=== PATIENT | female | born 1935 | race Caucasian/White ===

== ENCOUNTER 2018-12-27 11:10 | Inpatient (IN) | payer MEDICARE ==
[2018-12-27 11:48] VITALS: BMI 24.2
[2018-12-27] MEDS ORDERED: HYDROcodone/Acetaminophen 5/325 mg Tablet PO PRN (13:22)
[2018-12-27] MEDS ORDERED: cloNIDine 0.1 MG TAB PO PRN (13:22)
[2018-12-27] MEDS ORDERED: Senokot S 8.6-50 MG TAB PO PRN (13:22)
[2018-12-27] MEDS ORDERED: Bisacodyl 5 MG TAB PO PRN (13:22)
[2018-12-27] MEDS ORDERED: Zolpidem Tartrate 5 MG TAB PO PRN (13:22)
[2018-12-27] MEDS ORDERED: Acetaminophen 325 MG TAB PO PRN (13:22)
[2018-12-27] MEDS ORDERED: Ondansetron ODT 4 MG TAB PO PRN (13:22)
[2018-12-27] MEDS ORDERED: Ibuprofen 200 MG TAB PO PRN (13:22)
[2018-12-27] MEDS ORDERED: HYDROcodone/Acetaminophen 10/325 mg Tablet PO PRN (13:22)
[2018-12-27] MEDS ORDERED: Morphine 2 MG/ML SYRINGE SLOW IVP PRN (14:00)
[2018-12-27 14:01] LABS: #Basophils 0.1 thou/uL (0.0-0.2); #Eosinphils 0.2 thou/uL (0.0-0.7); #Lymphocytes 2.2 thou/uL (1.20-3.40); #Monocytes 0.5 thou/uL (0.11-0.59); #Neutrophils 7.2 thou/uL (1.40-6.50); %Basophils 1.2 % (0.0-1.0); %Lymphocytes 21.7 % (21.0-51.0); %Monocytes 4.5 % (0.0-10.0); %Neutrophils 70.6 % (42.0-75.0); Hemoglobin 12.6 g/dL (12.0-16.0); Mean Corpuscular HGB CONC 31.6 g/dL (32.0-36.0); Mean Corpuscular Hemoglobin 27.8 pg (27.0-31.0); Mean Platelet Volume 8.3 fL (7.4-10.4); Platelet Count 372 thou/uL (130-400); RBC Distribution Width 13.5 % (11.5-14.5); Red Blood Cell (RBC) Count 4.53 mill/uL (4.20-5.40); White Blood Cell (WBC) Count 10.1 thou/uL (4.8-10.8)
[2018-12-27 14:15] LABS: ALT (SGPT) 11 U/L (8-55); AST (SGOT) 17 U/L (5-34); Albumin 4.4 g/dL (3.4-4.8); Alkaline Phosphatase 113 U/L (40-110); Anion Gap 15 mmol/L (10-20); BUN (Urea Nitrogen) 18 mg/dL (9.8-20.1); Bilirubin, Total 0.5 mg/dL (0.2-1.2); Calc. Creatinine Clearance 47 mL/min (70-130); Calcium 9.8 mg/dL (7.8-10.44); Carbon Dioxide 26 mmol/L (23-31); Chloride 104 mmol/L (98-107); Estimated GFR-MDRD 57; Globulin 3.3 g/dL (2.4-3.5); Glucose 143 mg/dL (83-110); Potassium 3.8 mmol/L (3.5-5.1); Protein, Total 7.7 g/dL (6.0-8.3); Sodium 141 mmol/L (136-145)
[2018-12-27] MEDS ORDERED: Nebivolol HCl 5 MG TAB PO SCH (15:30)
[2018-12-27] MEDS: Vancomycin HCl 1 GM in Sodium Chloride 0.9% 250 ML 300 ML IVPB SCH (15:34)
[2018-12-27] MEDS: Famotidine 20 MG TAB PO SCH (20:59)
[2018-12-28 05:34] LABS: #Basophils 0.2 thou/uL (0.0-0.2); #Eosinphils 0.3 thou/uL (0.0-0.7); #Lymphocytes 2.5 thou/uL (1.20-3.40); #Monocytes 0.7 thou/uL (0.11-0.59); #Neutrophils 4.4 thou/uL (1.40-6.50); %Basophils 2.1 % (0.0-1.0); %Eosinophils 3.8 % (0.0-10.0); %Lymphocytes 30.6 % (21.0-51.0); %Monocytes 8.8 % (0.0-10.0); %Neutrophils 54.7 % (42.0-75.0); Mean Corpuscular HGB CONC 32.8 g/dL (32.0-36.0); Mean Corpuscular Hemoglobin 28.2 pg (27.0-31.0); Mean Corpuscular Volume 86.1 fL (78.0-98.0); Mean Platelet Volume 7.9 fL (7.4-10.4); Platelet Count 300 thou/uL (130-400); RBC Distribution Width 13.2 % (11.5-14.5); Red Blood Cell (RBC) Count 4.24 mill/uL (4.20-5.40)
[2018-12-28 05:43] LABS: Anion Gap 12 mmol/L (10-20); BUN (Urea Nitrogen) 16 mg/dL (9.8-20.1); Calc. Creatinine Clearance 57 mL/min (70-130); Calcium 9.1 mg/dL (7.8-10.44); Carbon Dioxide 26 mmol/L (23-31); Chloride 106 mmol/L (98-107); Estimated GFR-MDRD 72; Glucose 90 mg/dL (83-110); Potassium 4.2 mmol/L (3.5-5.1); Sodium 140 mmol/L (136-145)
[2018-12-28] MEDS: Famotidine 20 MG TAB PO SCH ×2 (08:45→20:19)
[2018-12-28] MEDS: Polyethylene Glycol OPTH DROP 15 ML BOT EA EYE SCH (08:46)
[2018-12-28] MEDS ORDERED: Nebivolol HCl 5 MG TAB PO SCH (09:00)
[2018-12-28] MEDS: Vancomycin HCl 1 GM in Sodium Chloride 0.9% 250 ML 300 ML IVPB SCH (15:25)
[2018-12-28] MEDS: Nebivolol HCl 5 MG TAB PO SCH (17:26)
[2018-12-29] MEDS: Famotidine 20 MG TAB PO SCH ×2 (09:29→19:51)
[2018-12-29] MEDS: Polyethylene Glycol OPTH DROP 15 ML BOT EA EYE SCH (09:30)
[2018-12-29 14:44] LABS: Vancomycin, Trough 7.5 ug/mL
[2018-12-29] MEDS ORDERED: Vancomycin HCl 750 MG in Sodium Chloride 0.9% 250 ML 250 ML IVPB SCH (15:00)
[2018-12-29] MEDS: Nebivolol HCl 5 MG TAB PO SCH (17:17)
[2018-12-30 06:19] VITALS: BP 142/78; TEMP 98.3
[2018-12-30] MEDS ORDERED: Lidocaine 1% PF 5 ML VIAL ONE (08:17)
[2018-12-30] MEDS: Famotidine 20 MG TAB PO SCH (08:26)
[2018-12-30] MEDS: Polyethylene Glycol OPTH DROP 15 ML BOT EA EYE SCH (08:26)
[2018-12-30] MEDS ORDERED: Morphine 2 MG/ML SYRINGE ONE ×2 (10:47→13:11)
[2018-12-30] MEDS ORDERED: Morphine 2 MG/ML SYRINGE SLOW IVP SCH (13:00)
[2018-12-30] MEDS ORDERED: Cephalexin 250 MG CAP PO SCH (14:00)
[2018-12-30] MEDS ORDERED: Vancomycin HCl 750 MG in Sodium Chloride 0.9% 250 ML 250 ML IVPB SCH (15:00)
[2018-12-31] MEDS ORDERED: Amlodipine 5 MG TAB PO SCH (09:00)
== END 2018-12-30 15:31 | disposition swing bed (61) | DRG 746 ==
LOC: BURMED 11:10
PROVIDERS: ADMIT Family Medicine; ATTEND Family Medicine
PROC: 0U9GXZZ Drainage of Vagina, External Approach (ICD-10-PCS; principal; 2018-12-27)
DX: N76.4 Abscess of vulva (principal); L03.818 Cellulitis of other sites; N75.0 Cyst of Bartholin's gland; I10 Essential (primary) hypertension; H81.03 Meniere's disease, bilateral; H91.8X3 Other specified hearing loss, bilateral; N76.2 Acute vulvitis; M85.80 Other specified disorders of bone density and structure, unspecified site; Z90.710 Acquired absence of both cervix and uterus
CPT/HCPCS: 36415; 80048; 80053; 80202; 85025; 87040; 97602; J2001; J2270; J3370; J7050

== ENCOUNTER 2018-12-30 15:45 | Inpatient (IN) | payer MEDICARE ==
[2018-12-30] MEDS ORDERED: Senokot S 8.6-50 MG TAB PO PRN (16:37)
[2018-12-30] MEDS ORDERED: Zolpidem Tartrate 5 MG TAB PO PRN (16:38)
[2018-12-30] MEDS ORDERED: cloNIDine 0.1 MG TAB PO PRN (16:39)
[2018-12-30] MEDS ORDERED: Ibuprofen 200 MG TAB PO PRN (16:40)
[2018-12-30] MEDS ORDERED: Morphine 2 MG/ML SYRINGE SLOW IVP PRN (16:41)
[2018-12-30] MEDS ORDERED: Ondansetron ODT 4 MG TAB PO PRN (16:41)
[2018-12-30] MEDS: Nebivolol HCl 5 MG TAB PO SCH (17:41)
[2018-12-30] MEDS: Cephalexin 250 MG CAP PO SCH (21:06)
[2018-12-30] MEDS: Famotidine 20 MG TAB PO SCH (21:07)
[2018-12-31] MEDS: Cephalexin 250 MG CAP PO SCH ×3 (05:48→21:45)
[2018-12-31] MEDS: Amlodipine 5 MG TAB PO SCH (09:02)
[2018-12-31] MEDS: Polyethylene Glycol OPTH DROP 15 ML BOT EA EYE SCH (09:03)
[2018-12-31] MEDS: Famotidine 20 MG TAB PO SCH ×2 (09:03→21:45)
[2018-12-31] MEDS: Nebivolol HCl 5 MG TAB PO SCH (17:30)
[2018-12-31] MEDS ORDERED: Famotidine 20 MG TAB ONE (20:33)
[2019-01-01] MEDS: Cephalexin 250 MG CAP PO SCH ×3 (06:27→21:22)
[2019-01-01] MEDS: Polyethylene Glycol OPTH DROP 15 ML BOT EA EYE SCH (08:12)
[2019-01-01] MEDS: Amlodipine 5 MG TAB PO SCH (08:12)
[2019-01-01] MEDS: Famotidine 20 MG TAB PO SCH ×2 (08:13→21:22)
[2019-01-01 12:43] VITALS: BMI 24.4
[2019-01-01] MEDS: Nebivolol HCl 5 MG TAB PO SCH (17:52)
[2019-01-02] MEDS: Cephalexin 250 MG CAP PO SCH ×3 (05:23→21:26)
[2019-01-02] MEDS: Polyethylene Glycol OPTH DROP 15 ML BOT EA EYE SCH (08:21)
[2019-01-02] MEDS: Famotidine 20 MG TAB PO SCH ×2 (08:21→21:26)
[2019-01-02] MEDS: Amlodipine 5 MG TAB PO SCH (08:21)
[2019-01-02] MEDS: Nebivolol HCl 5 MG TAB PO SCH (16:38)
[2019-01-03] MEDS: Cephalexin 250 MG CAP PO SCH ×3 (05:50→21:04)
[2019-01-03] MEDS: Amlodipine 5 MG TAB PO SCH (09:02)
[2019-01-03] MEDS: Polyethylene Glycol OPTH DROP 15 ML BOT EA EYE SCH (09:05)
[2019-01-03] MEDS: Famotidine 20 MG TAB PO SCH ×2 (09:05→21:04)
[2019-01-03] MEDS: Nebivolol HCl 5 MG TAB PO SCH (17:08)
[2019-01-04] MEDS: Cephalexin 250 MG CAP PO SCH ×2 (05:43→14:01)
[2019-01-04 06:12] VITALS: BP 155/65; TEMP 98.1
[2019-01-04] MEDS: Polyethylene Glycol OPTH DROP 15 ML BOT EA EYE SCH (09:00)
[2019-01-04] MEDS: Famotidine 20 MG TAB PO SCH (09:01)
[2019-01-04] MEDS: Amlodipine 5 MG TAB PO SCH (09:01)
--- NOTE | 2019-01-04 21:49 | DIS ---
DATE OF ADMISSION: 12/27/2018 DATE OF TRANSFER TO [facility]: 12/30/2018 DATE OF DISCHARGE: 01/04/2019 ADMISSION DIAGNOSES: 1. Vulvar abscess. 2. Cellulitis of perineum. 3. Hypertension. 4. Comorbid diagnosis, Meniere disease. DISCHARGE DIAGNOSES: 1. Vulvar abscess with methicillin-susceptible Staphylococcus aureus. 2. Cellulitis of perineum. 3. Hypertension. 4. Physical deconditioning. 5. Comorbid diagnosis, Meniere disease. PROCEDURES: 1. Incision and drainage of vulvar abscess, December 27, performed outpatient the date of admission. 2. Blood cultures x2, date of admission, negative for growth. 3. Bacterial culture from incision and drainage from the date of admission, which grew out Staph aureus, resistant to amoxicillin, but otherwise pansensitive. 4. Re-exploration of wound with repacking by physician, December 30, 2018. HISTORY AND PHYSICAL: Please see printed progress notes and history and physical update from the date of admission. HOSPITAL COURSE: Ms. Rothman is an 83-year-old female, who presented in the ambulatory setting as a new patient to my office complaining of increased swelling and discomfort to the right vulva with bloody discharge. In the office, the patient was found to have vulvar abscess with spread of erythema to the mons pubis region. The wound was incised and drained in the office and culture performed, which subsequently grew out MSSA. The wound was packed, and due to the patient living alone and the extending cellulitis, decision was made to direct admit the patient to the hospital for IV antibiotics, wound care, and pain control. She was placed empirically on vancomycin and this was discontinued and oral Keflex provided once sensitivities were back, and the patient was no longer having significant purulent discharge. Wound care was performed daily. On the day prior to her discharge from the swing bed unit, the patient's packing was left out and she was able to complete her ADLs. She also had physical deconditioning during her hospitalization and physical therapy evaluated and treated the patient. It was determined at the time of her discharge that she would need rolling walker and home health with PT and [facility] for continued wound care. The patient had significant elevation of her blood pressure during her hospitalization on her home medication of Bystolic. Amlodipine was added with good control of her blood pressure thereafter. She will be discharged on this new medication. The patient has had history of dyspepsia in the past and sensitivity to oral medications. She noted improvement of her usual symptoms when she was given Pepcid b.i.d. for GI stress ulcer prophylaxis. Therefore, she will also be discharged on this new medication. The patient would like to follow up with her primary care physician, Dr. Harrington, and has been instructed to do so in approximately 7 days for recheck of her wound and also her blood pressure. DISPOSITION: Discharged to home with home health for [facility] and physical therapy. CONDITION: Good. MEDICATIONS: 1. Amlodipine 5 mg p.o. daily. 2. Keflex 500 mg p.o. q.8 hours x2 days, to complete a total of 10 days of antibiotics. 3. Pepcid 20 mg p.o. b.i.d. 4. Bystolic 5 mg p.o. daily. 5. Biotin 1000 mcg daily. 6. Simethicone gas relief 125 mg p.o. b.i.d. 7. Systane ophthalmic solution one drop in each eye daily. Job ID: [id number] [facility]
== END 2019-01-04 16:55 | disposition home health service (06) | DRG 758 ==
LOC: BURMED 15:45
PROVIDERS: ADMIT Family Medicine; ATTEND Family Medicine
DX: N76.4 Abscess of vulva (principal); L03.315 Cellulitis of perineum; B95.61 Methicillin susceptible Staphylococcus aureus infection as the cause of diseases classified elsewhere; I10 Essential (primary) hypertension; R53.81 Other malaise; H81.03 Meniere's disease, bilateral